=== PATIENT | female | born 1965 | race Caucasian/White ===

== ENCOUNTER 2017-08-10 12:59 | Emergency (ER) | payer OTHER ==
[~2017-08-10] VITALS: Ht 152.4 cm; Wt 97.7 kg
[2017-08-10 13:01] VITALS: BP 111/74
[2017-08-10] MEDS ORDERED: LIDOCAINE 1%, 20ML ONE (13:51)
[2017-08-10] MEDS ORDERED: BUPR-173 PO (13:56)
[2017-08-10] MEDS ORDERED: FURO20TA3 PO (13:56)
[2017-08-10] MEDS ORDERED: CHOL100011 PO (13:56)
[2017-08-10] MEDS ORDERED: METF850T2 PO (13:56)
[2017-08-10] MEDS ORDERED: LIRA0.6P INJ (13:56)
[2017-08-10] MEDS ORDERED: ROSU10TA PO (13:57)
[2017-08-10] MEDS ORDERED: LISI-167 PO (13:57)
[2017-08-10] MEDS ORDERED: FENO130C6 PO (13:57)
[2017-08-10] MEDS ORDERED: LIDOCAINE 1%, 10ML INFIL ONE (14:00)
== END 2017-08-10 14:35 | disposition home or self-care (01) ==
LOC: ED 14:00
DX: L02.213 Cutaneous abscess of chest wall (principal)
CPT/HCPCS: 10060

== ENCOUNTER → 2021-01-27 | Outpatient (CLI) | payer OTHER ==
[~2021-01-27] MED LIST: BUPR-173 PO; CHOL100011 PO; FENO130C12 PO; FURO20TA3 PO; LIRA0.6P INJ; LISI-167 PO; METF850T10 PO; ROSU10TA2 PO
[2021-01-27 08:05] LABS: ALANINE AMINOTRANSFERASE 17 U/L (12-78); ALBUMIN 3.7 g/dL (3.4-5.0); CALCIUM 9.3 mg/dL (8.5-10.1); CHLORIDE 109 mmol/L (98-107); CREATININE 0.85 mg/dL (0.55-1.02)
[2021-01-27 08:07] LABS: ALKALINE PHOSPHATASE 78 U/L (45-117); BILIRUBIN,TOTAL 0.5 mg/dL (0.2-1.0); CHOL/HDL RATIO 2.8; CHOLESTEROL, TOTAL 190 mg/dL (140-239); HDL CHOL % 35 % (28-40); HDL CHOLESTEROL (DIRECT) 67 mg/dL (40-60); LDL CHOLESTEROL,CALCULATED 100 mg/dL (54-169); LDL/HDL RATIO 1.5 (0.5-3.0); TOTAL PROTEIN 7.4 g/dL (6.4-8.2); TRIGLYCERIDES 115 mg/dL (50-200); VLDL CHOLESTEROL 23 mg/dL (0-25)
[2021-01-27 08:20] LABS: ANION GAP 7 mmol/L (5-15)
== END | disposition home or self-care (01) ==
LOC: LAB 07:39
PROVIDERS: ATTEND Family Medicine
DX: R73.09 Other abnormal glucose (principal); N18.30 Chronic kidney disease, stage 3 unspecified; R63.5 Abnormal weight gain
CPT/HCPCS: 36415; 80053; 80061; 83036